=== PATIENT | female | born 1960 | race Caucasian/White ===

== ENCOUNTER 2021-01-27 13:34 | Day surgery (SDC) | payer MEDICAID ==
[~2021-01-27] VITALS: Ht 171.4 cm; Wt 100.0 kg
[2021-01-27 13:45] VITALS: BP 159/102
[2021-01-27] MEDS ORDERED: METF-437 PO (14:28)
[2021-01-27] MEDS ORDERED: LISI20TA28 PO (14:28)
[2021-01-27] MEDS ORDERED: fentaNYL/PF 50MCG/1 ML 2ML syringe ONE (14:32)
[2021-01-27] MEDS ORDERED: MIDAZolam 1 MG/ML 5ML VIAL ONE (14:33)
[2021-01-27] MEDS ORDERED: LIDOcaine Viscous 15ml cup ONE (14:33)
[2021-01-27] MEDS ORDERED: METO-395 PO (14:34)
[2021-01-27] MEDS ORDERED: BUPR150T8 PO (14:34)
[2021-01-27] MEDS ORDERED: GABA-530 PO (14:35)
[2021-01-27] MEDS ORDERED: ROSU10TA2 PO (14:35)
[2021-01-27] MEDS ORDERED: LIRA0.6P2 SQ (14:37)
[2021-01-27] MEDS ORDERED: OMEP40CA21 PO (14:37)
[2021-01-27 15:51] VITALS: BP 156/83
[2021-01-27 16:01] VITALS: BP 147/81
[2021-01-27 16:11] VITALS: BP 146/84
[2021-01-27 16:21] VITALS: BP 150/81
[2021-01-27 16:31] VITALS: BP 150/89
== END 2021-01-27 16:45 | disposition home or self-care (01) ==
LOC: GI LAB 13:34
PROVIDERS: ATTEND Internal Medicine Gastroenterology
DX: R10.30 Lower abdominal pain, unspecified (principal); R10.13 Epigastric pain; R11.2 Nausea with vomiting, unspecified; K29.60 Other gastritis without bleeding; J44.9 Chronic obstructive pulmonary disease, unspecified; E11.22 Type 2 diabetes mellitus with diabetic chronic kidney disease; I12.9 Hypertensive chronic kidney disease with stage 1 through stage 4 chronic kidney disease, or unspecified chronic kidney disease; N18.2 Chronic kidney disease, stage 2 (mild); Z88.2 Allergy status to sulfonamides; Z88.8 Allergy status to other drugs, medicaments and biological substances; Z79.899 Other long term (current) drug therapy; Z79.84 Long term (current) use of oral hypoglycemic drugs
CPT/HCPCS: 43239; 45378; 99152; 99153; J2250; J3010; J7040; A4620